=== PATIENT | female | born 1955 | race Caucasian/White ===

== ENCOUNTER → 2025-03-02 08:28 | Outpatient (REF) | payer MEDICARE, BC, SELFPAY | LOC: RCS 08:28 | PROVIDERS: ATTENDING PHYSICIAN Internal Medicine Cardiovascular Disease; FAMILY PHYSICIAN Family Medicine | DX: I42.2 Other hypertrophic cardiomyopathy (principal) | CPT/HCPCS: 93225; 93226 ==

== ENCOUNTER → 2025-03-10 08:18 | Outpatient (REF) | payer MEDICARE, BC, SELFPAY | LOC: RCS 08:18 | PROVIDERS: ATTENDING PHYSICIAN Internal Medicine Cardiovascular Disease; FAMILY PHYSICIAN Family Medicine | DX: I42.2 Other hypertrophic cardiomyopathy (principal) | CPT/HCPCS: 93017; 93350 ==